=== PATIENT | female | born 1960 | race African-American/Black ===

== ENCOUNTER 2018-02-21 11:47 | Inpatient (IN) | payer OTHER ==
[~2018-02-21] VITALS: Ht 157.5 cm; Wt 128.0 kg
[~2018-02-21 11:47] MED LIST: ARICEPT ODT10 MG PO; Anusol HC,Proctozone PR; BISOPROLOL FUMAR5 M1 PO; CHOLESTYRAMINE L4 GM PO; CITALOPRAM HBR40 MG PO; FLEXERIL10 MG PO; FOLIC ACID0.4 MG PO; FOLVITE1 MG PO; HUMIRA20 MG/0.4 SQ; HUMIRA40 MG/0.1 PO; HUMIRA40 MG/0.1 SC; K-Dur PO; K-LOR20 MEQ PO; LASIX80 MG PO; LEVAQUIN750 MG PO; METHOTREXATE2.5 MG PO; PRAVACHOL10 MG PO; PREDNISONE10 MG PO; PREMARIN0.9 MG PO; PROTONIX40 MG PO; SERTRALINE HCL25 MG PO; TRAMADOL-ACETA1 EACH PO; ULTRACET1 TABLET PO; VENTOLIN HFA18 GM IH; Vitamin B-12 PO; ZAROXOLYN2.5 MG PO; ZEBETA5 MG PO; Zoloft PO; [UNRECOGNIZED DRUG - OTHER] S
[2018-02-21 12:26] LABS: APPEARANCE CLEAR ((CLEAR)); BILIRUBIN NEGATIVE; BLOOD SMALL; COLOR YELLOW ((YELLOW)); GLUCOSE (STRIP) NEGATIVE; KETONES NEGATIVE; LEUKOCYTES NEGATIVE; NITRITE POSITIVE; PROTEIN (STRIP) NEGATIVE; SPECIFIC GRAVITY 1.027 (1.000-1.030)
[2018-02-21 12:36] LABS: AMPHETAMINE NEGATIVE (500 ng/mL); BARBITURATES NEGATIVE (200 ng/mL); BENZODIAZEPINES NEGATIVE (150 ng/mL); BUPRENORPHINE NEGATIVE (10 ng/mL); COCAINE NEGATIVE (150 ng/mL); METHADONE NEGATIVE (200 ng/mL); METHAMPHETAMINE NEGATIVE (500 ng/mL); OPIATES (MORPHINE) NEGATIVE (100 ng/mL); OXYCODONE NEGATIVE (100 ng/mL); PHENCYCLIDINE NEGATIVE (25 ng/mL); PROPOXYPHENE NEGATIVE (300 ng/mL); THC CANNABINOIDS NEGATIVE (50 ng/mL); TRICYCLIC ANTIDEPRESSANTS NEGATIVE (300 ng/mL)
[2018-02-21 12:39] LABS: BASOPHIL (%) 0.6 % (0-1); BASOPHIL COUNT 0.1 K/uL (0-0.1); EOSINOPHIL (%) 1.1 % (0-5); EOSINOPHIL COUNT 0.1 K/uL (0-0.3); HEMOGLOBIN 12.2 G/DL (11.9-15.5); IMMATURE GRANULOCYTE (%) 0.7 % (0.0-0.7); LYMPHOCYTE (%) 32.6 % (15-42); LYMPHOCYTE COUNT 3.4 K/uL (1.0-2.8); MCH 27.1 PG (29.0-34.0); MCHC 32.1 G/DL (30.0-36.0); MCV 84.3 FL (83-99); MONOCYTE (%) 7.2 % (3-12); MONOCYTE COUNT 0.8 K/uL (0-0.8); NEUTROPHIL (%) 57.8 % (45-76); NEUTROPHIL COUNT 6.1 K/uL (1.8-6.4); PLATELET COUNT 374 K/uL (156-360); RBC DIS.WIDTH-CV 14.2 % (11.8-14.6); RBC DIS.WIDTH-SD 43.5 % (39-53); RED BLOOD COUNT 4.51 M/uL (3.80-5.20); WHITE BLOOD COUNT 10.5 K/uL (4.1-10.2)
[2018-02-21 12:46] LABS: BACTERIA 1+ /HPF; EPITHELIAL CELLS RARE /HPF; HYALINE CASTS 0-5 /LPF; MUCUS TRACE /LPF; RED BLOOD CELLS 0-5 /HPF (0-5); WHITE BLOOD CELLS 0-5 /HPF (0-5)
[2018-02-21 12:59] LABS: CHLORIDE 104 mEq/L (99-109); POTASSIUM 5.8 mEq/L (3.7-5.4); SODIUM 137 mEq/L (136-147)
[2018-02-21 13:00] LABS: GLUCOSE 108 mg/dL (70-99)
[2018-02-21 13:03] LABS: SERUM ETHYL ALCOHOL < 10 mg/dL
[2018-02-21 13:04] LABS: GFR ESTIMATE (CALCULATED) > 59 mL/min/
[2018-02-21 13:05] LABS: UREA NITROGEN (BUN) 12 mg/dL (9-23)
[2018-02-21 15:44] LABS: CHLORIDE 103 mEq/L (99-109); SODIUM 138 mEq/L (136-147)
[2018-02-21 15:46] LABS: GLUCOSE 102 mg/dL (70-99)
[2018-02-21 15:47] LABS: POTASSIUM 4.3 mEq/L (3.7-5.4)
[2018-02-21 15:50] LABS: GFR ESTIMATE (CALCULATED) > 59 mL/min/
[2018-02-21 15:51] LABS: UREA NITROGEN (BUN) 12 mg/dL (9-23)
[2018-02-21 17:43] VITALS: BP 186/80
[2018-02-21] MEDS ORDERED: BISOPROLOL-HCT1 EACH PO (20:57)
[2018-02-21] MEDS ORDERED: CIPRO XR 500 M500 M1 PO (21:00)
[2018-02-21] MEDS ORDERED: VESICARE5 MG PO (21:06)
[2018-02-22 07:58] VITALS: BP 148/70
[2018-02-22] MEDS ORDERED: ADVAIR 500/501 DISK AEROSOL (10:22)
[2018-02-22] MEDS ORDERED: ZIAC 10/6.251 TABLET PO (10:24)
[2018-02-22] MEDS ORDERED: BUPROPION HCL150 M2 PO (10:25)
[2018-02-22] MEDS ORDERED: HYDROXYZINE HCL10 MG PO (10:26)
[2018-02-22] MEDS ORDERED: MOVE FREE JOIN1 EACH PO (10:27)
[2018-02-22] MEDS ORDERED: VITAMIN D31000 UNI2 PO (10:28)
[2018-02-22] MEDS ORDERED: AERONEB GO NEB1 EACH AEROSOL (10:28)
[2018-02-22] MEDS ORDERED: BISOPROLOL FUMA10 MG PO (11:41)
[2018-02-22 16:03] VITALS: BP 131/84
[2018-02-23 08:18] VITALS: BP 136/90
[2018-02-23 17:00] VITALS: BP 150/81
[2018-02-23 19:29] VITALS: BP 134/76
[2018-02-24 09:15] VITALS: BP 194/96
[2018-02-24 11:15] VITALS: BP 197/101
[2018-02-24] MEDS ORDERED: CIPRO500 MG PO (11:17)
[2018-02-24] MEDS ORDERED: ZOLOFT100 MG PO (11:19)
[2018-02-24] MEDS ORDERED: ABILIFY5 MG PO (11:22)
== END 2018-02-24 14:54 | disposition home or self-care (01) | DRG 885 ==
LOC: EME 11:47 → 1WEST 14:10 → EDOF 14:10 → 1WEST 14:10 → ENRESERV 17:13 → 1WEST 17:30
PROVIDERS: Emergency Medicine
DX: F33.9 Major depressive disorder, recurrent, unspecified (principal); N39.0 Urinary tract infection, site not specified; R45.851 Suicidal ideations; Z68.43 Body mass index [BMI] 50.0-59.9, adult; F34.1 Dysthymic disorder; E78.5 Hyperlipidemia, unspecified; F41.9 Anxiety disorder, unspecified; F60.4 Histrionic personality disorder; I10 Essential (primary) hypertension; J44.9 Chronic obstructive pulmonary disease, unspecified; K21.9 Gastro-esophageal reflux disease without esophagitis; K59.00 Constipation, unspecified; Z87.891 Personal history of nicotine dependence; E66.9 Obesity, unspecified; Z79.51 Long term (current) use of inhaled steroids; Z56.0 Unemployment, unspecified; Z73.6 Limitation of activities due to disability; G43.909 Migraine, unspecified, not intractable, without status migrainosus
CPT/HCPCS: 80048; 80048 91; 81003; 85025; 87086; 90839; 94640; 94640 76; 99202; 99281; 99285; G0480